=== PATIENT | male | born 1985 | race Two or more races ===

== ENCOUNTER 2021-04-01 10:13 | Emergency (ER) | payer OTHER ==
[~2021-04-01] VITALS: Ht 177.8 cm; Wt 137.9 kg
[2021-04-01] MEDS ORDERED: CELEBREX100 MG PO (16:41)
[2021-04-01] MEDS ORDERED: ULTRAM50 MG PO (16:41)
[2021-04-01] MEDS ORDERED: BACTRIM DS TAB1 EACH PO (16:41)
== END 2021-04-01 17:03 ==
LOC: ER 10:13
DX: N50.812 Left testicular pain (principal)